=== PATIENT | female | born 1945 | race African-American/Black ===

== ENCOUNTER 2024-08-07 08:36 | Emergency (ER) | payer SELFPAY ==
[~2024-08-07] VITALS: Ht 165.1 cm; Wt 72.0 kg
[2024-08-07 08:42] VITALS: RESP 12
[2024-08-07 11:59] VITALS: BP 191/90; PULSE 136
== END 2024-08-07 09:05 ==
LOC: ER 08:55
DX: I46.9 Cardiac arrest, cause unspecified (principal); I11.0 Hypertensive heart disease with heart failure; E11.9 Type 2 diabetes mellitus without complications
CPT/HCPCS: 31500; 92950; 99285